=== PATIENT | male | born 1935 | race Two or more races ===

== ENCOUNTER 2018-02-22 11:46 | Emergency (ER) | payer OTHER ==
[~2018-02-22] VITALS: Ht 180.3 cm; Wt 86.2 kg
[2018-02-22 11:50] VITALS: Ht 180.3 cm; Wt 86.2 kg
[2018-02-22 14:06] VITALS: BP 147/99
== END 2018-02-22 14:06 | disposition home or self-care (01) ==
LOC: ED 11:46
DX: S05.32XA Ocular laceration without prolapse or loss of intraocular tissue, left eye, initial encounter (principal); W22.8XXA Striking against or struck by other objects, initial encounter; Y93.89 Activity, other specified; Y92.89 Other specified places as the place of occurrence of the external cause; Y99.8 Other external cause status
CPT/HCPCS: 90715; J2001; J2060